=== PATIENT | male | born 1990 | race Caucasian/White ===

== ENCOUNTER 2021-10-30 16:49 | Emergency (ER) | payer SELFPAY ==
[~2021-10-30] VITALS: Ht 177.8 cm; Wt 90.0 kg
[2021-10-30 17:14] VITALS: BP 122/79
[2021-10-30 17:15] VITALS: BP 120/80
[2021-10-30 17:30] VITALS: BP 131/79
[2021-10-30 17:46] VITALS: BP 133/80
[2021-10-30 18:01] VITALS: BP 120/87
[2021-10-30 19:22] LABS: URINE BILIRUBIN - DIPSTICK NEGATIVE (NEGATIVE); URINE BLOOD DIPSTICK TRACE-INTACT (NEGATIVE); URINE COLOR YELLOW; URINE GLUCOSE - DIPSTICK NEGATIVE (NEGATIVE); URINE KETONE TRACE mg/dL (NEGATIVE); URINE LEUK ESTERASE NEGATIVE (NEGATIVE); URINE NITRITE - DIPSTICK NEGATIVE (Negative); URINE PH 6.5 (4.5-8.0); URINE PROTEIN - DIPSTICK NEGATIVE (NEG-TRACE); URINE UROBILINOGEN - DIPSTICK 0.2 E.U./dL (0.2)
[2021-10-30] MEDS ORDERED: PERCOCET 5/325M1 TAB PO (19:23)
[2021-10-30] MEDS ORDERED: KEFLEX500 MG PO (19:24)
[2021-10-30 19:31] VITALS: BP 120/87
== END 2021-10-30 19:41 | disposition home or self-care (01) | DRG 730 ==
LOC: ED 16:49
PROVIDERS: Nurse Practitioner
PROC: 0HQAXZZ Repair Inguinal Skin, External Approach (ICD-10-PCS; principal; 2021-10-30)
DX: S31.31XA Laceration without foreign body of scrotum and testes, initial encounter (principal); W11.XXXA Fall on and from ladder, initial encounter; Y92.009 Unspecified place in unspecified non-institutional (private) residence as the place of occurrence of the external cause